=== PATIENT | male | born 1950 | race Caucasian/White ===

== ENCOUNTER 2021-01-08 17:16 | Emergency (ER) | payer OTHER ==
[~2021-01-08 17:16] MED LIST: Iopamidol 370 76% 100 ML VIAL ONE; Sodium Chloride 0.9% 1,000 ML BAG ONE
[2021-01-08] MEDS ORDERED: Boostrix 0.5 ML (Tdap) VIAL ONE (18:10)
[2021-01-08] MEDS ORDERED: Morphine 4 MG/ML VIAL ONE ×3 (18:10→21:18)
[2021-01-08] MEDS ORDERED: Ondansetron PF 4 MG/2 ML Vial ONE (18:10)
[2021-01-08 18:24] LABS: #Basophils 0.1 thou/uL (0.0-0.2); #Eosinphils 0.3 thou/uL (0.0-0.7); #Lymphocytes 1.2 thou/uL (1.20-3.40); #Monocytes 0.3 thou/uL (0.11-0.59); #Neutrophils 9.1 thou/uL (1.40-6.50); %Basophils 0.8 % (0.0-1.0); %Eosinophils 2.6 % (0.0-10.0); %Lymphocytes 10.8 % (21.0-51.0); %Monocytes 3.1 % (0.0-10.0); %Neutrophils 82.7 % (42.0-75.0); Hemoglobin 14.6 g/dL (14.0-18.0); Mean Corpuscular HGB CONC 31.9 g/dL (32.0-36.0); Mean Corpuscular Hemoglobin 31.3 pg (27.0-31.0); Mean Corpuscular Volume 98.2 fL (78.0-98.0); Mean Platelet Volume 5.9 fL (7.4-10.4); Platelet Count 288 thou/uL (130-400); RBC Distribution Width 11.8 % (11.5-14.5); Red Blood Cell (RBC) Count 4.66 mill/uL (4.70-6.10)
[2021-01-08 18:42] LABS: Potassium 5.7 mmol/L (3.5-5.1); Sodium 136 mmol/L (136-145)
[2021-01-08 18:43] LABS: Anion Gap 18 mmol/L (10-20); BUN (Urea Nitrogen) 35 mg/dL (8.4-25.7); Calc. Creatinine Clearance 0 mL/min (70-130); Carbon Dioxide 22 mmol/L (23-31); Chloride 102 mmol/L (98-107)
[2021-01-08 18:44] LABS: ALT (SGPT) 80 U/L (8-55); AST (SGOT) 84 U/L (5-34); Albumin 3.8 g/dL (3.4-4.8); Alkaline Phosphatase 56 U/L (40-110); Bilirubin, Total 0.8 mg/dL (0.2-1.2); Calcium 9.7 mg/dL (7.8-10.44); Globulin 3.1 g/dL (2.4-3.5); Glucose 312 mg/dL (80-115); Protein, Total 6.9 g/dL (5.8-8.1)
[2021-01-08 19:15] LABS: Bilirubin Negative (Negative); Blood, Urine Small (Negative); Clarity Clear (Clear); Glucose, Urine (Dipstick) 500 mg/dL (Negative); Ketone, Urine Negative (Negative); Leukocyte Negative (Negative); Nitrite Negative (Negative); Protein, Urine (Dipstick) 30 mg/dL (Neg-Trace); Urobilinogen 0.2 mg/dL (Less than 2); pH, Urine 6.5 (5.0-9.0)
[2021-01-08 19:17] LABS: Bacteria/HPF None Seen HPF (None Seen); RBC/HPF 0-3 HPF (0-3); Squamous Epithelial 0-3 HPF (0-3); WBC/HPF None Seen HPF (0-3)
[2021-01-08] MEDS ORDERED: Sodium Chloride 0.9% 200 ML ONE (19:26)
[2021-01-08] MEDS ORDERED: CEFAZOLIN 1 GM VIAL ONE (19:26)
== END 2021-01-08 21:41 | disposition short-term general hospital (02) ==
LOC: MADERS 17:16
DX: S22.41XA Multiple fractures of ribs, right side, initial encounter for closed fracture (principal); S51.811A Laceration without foreign body of right forearm, initial encounter; S30.1XXA Contusion of abdominal wall, initial encounter; I10 Essential (primary) hypertension; E78.5 Hyperlipidemia, unspecified; Z23 Encounter for immunization; W55.22XA Struck by cow, initial encounter
CPT/HCPCS: 36415; 70450; 71260; 72125; 74177; 80053; 81003; 81015; 85025; 90471; 90715; 93005; 96365; 96375; 96376; J0690; J2270; J2405; J3490; J7050; Q9967